=== PATIENT | female | born 1965 | race Caucasian/White ===

== ENCOUNTER → 2016-07-26 | Outpatient (CLI) | payer BC ==
[~2016-07-26] MED LIST: ACCU-CHEK D-TR1 CAR1 SQ; ASPIRIN PO; ATENOLOL PO; BACTRIM DS TABL1 TA1 PO; CYMBALTA20 M1 PO; ESTRACE PO; HUMALOG100 U/ML SUBQ; LORTAB 10/500 T1 TAB PO; NAPROXEN PO; NEURONTIN PO; NEURONTIN300 MG PO; PRAVACHOL20 MG PO; SINGULAIR PO; SYMLIN; VOLTAREN75 MG PO
[2016-07-26 11:39] LABS: BUN/CREATININE RATIO 27.14; CALCIUM SERUM 9.3 mg/dL (8.4-10.2); CREATININE SERUM 0.7 mg/dL (0.6-1.4); GLOM FILT RATE Estimated 101.7 mL/min (>60); POTASSIUM 4.6 mmol/L (3.5-5.1)
== END | disposition home or self-care (01) ==
LOC: CLAB 10:41
PROVIDERS: Internal Medicine Endocrinology, Diabetes & Metabolism
DX: E10.65 Type 1 diabetes mellitus with hyperglycemia (principal); E16.2 Hypoglycemia, unspecified; Z96.41 Presence of insulin pump (external) (internal)
CPT/HCPCS: 36415; 80048; 83036

== ENCOUNTER → 2016-10-19 | Outpatient (CLI) | payer BC ==
[2016-10-19 10:28] LABS: BUN/CREATININE RATIO 21.66; CALCIUM SERUM 9.4 mg/dL (8.4-10.2); CREATININE SERUM 0.6 mg/dL (0.6-1.4); POTASSIUM 4.7 mmol/L (3.5-5.1)
[2016-10-22 05:27] LABS: MICROALB UR (PNL) 1.2 mg/dL (***)
== END | disposition home or self-care (01) ==
LOC: CLAB 08:59
PROVIDERS: Internal Medicine Endocrinology, Diabetes & Metabolism
DX: E10.65 Type 1 diabetes mellitus with hyperglycemia (principal); E16.2 Hypoglycemia, unspecified
CPT/HCPCS: 36415; 80048; 80061; 82043; 82570; 83036

== ENCOUNTER 2016-11-11 12:47 | Emergency (ER) | payer BC ==
[~2016-11-11] VITALS: Ht 170.2 cm; Wt 86.2 kg
--- NOTE | ~2016-11-11 | CT4 ---
[facility] A Service of [facility] & [facility] RADIOLOGY TEXT RESULTS PATIENT: KADIE IRVIN LOCATION: SED : 69 UNIT #: [id number] AGE: [address]: Amarilis Griffin APRN SEX: F ORDER DR: [id number] [address] [address] [id number] MR#: [id number] Acc #: [id number] NAME: KADIE IRVIN : 1965 SEX: F STUDY DATE/TIME: 11/11/2016 14:03 UNIT: SED ROOM: STUDY DESCRIPTION: CT Abd and Pelv Wo Cont Attending Physician: Amarilis Griffin A.P.R.N. Ordering Physician: Amarilis Hendrix A.P.R.N. Primary Care Physician: Natalie Alfaro A.P.R.N. MEDICAL IMAGING REPORT This report is preliminary unless electronic signature is present. EXAM CT abdomen and pelvis without contrast 11/11/2016 1403 hours HISTORY 51-year-old woman with complaint of left flank pain for 4 days, possible renal stone. COMPARISON CT abdomen 11/14/2008 TECHNIQUE Helical noncontrasted images were obtained from the lung bases through the pubic symphysis without oral or intravenous contrast. Sagittal and coronal reconstructions were performed. Total exam DLP [address] exam was performed with one or more of the following radiation dose reduction techniques: automatic control, adjustment of mA and/or kV according to patient size, and iterative reconstruction. FINDINGS Images through the lung bases are clear. There is no effusion. Distal esophagus appears normal. Images through the abdomen without contrast demonstrate a normal appearance to the liver, spleen, pancreas and bile ducts. There are clips consistent with prior cholecystectomy. The adrenal glands are normal. The kidneys demonstrate no mass or stone. There are small extrarenal pelves bilaterally similar to prior study. There is no ureterectasis or ureteral calculus seen. Stomach is contracted and unopacified but appears normal. There is no small bowel distension or small bowel wall thickening. The terminal ileum is normal. There are clips consistent with prior appendectomy. STS. [facility] A Service of [facility] & [facility] RADIOLOGY TEXT RESULTS PATIENT: KADIE IRVIN LOCATION: SED : 69 UNIT #: [id number] AGE: [address]: Amarilis Griffin APRN SEX: F ORDER DR: The colon is nondistended. There is no colonic wall thickening. There a few diverticula at the junction of descending colon and sigmoid colon. 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 There is no adnexal mass or free fluid. Bone window images demonstrate no acute findings. IMPRESSION 1. No renal or ureteral calculi. 2. There are a few diverticula of the distal descending colon and proximal sigmoid colon without CT evidence of diverticulitis. 3. The stomach, small bowel are normal. 4. Postoperative change of cholecystectomy, appendectomy and hysterectomy. Dictated by... Sandra Gonzalez M.D. THIS IS AN ELECTRONICALLY VERIFIED REPORT Sandra Gonzalez M.D. at 11/12/2016 9:30 AM TRACIE/rosalee TD: 11/11/2016 19:21 JOB #: [id number] MEDICAL IMAGING REPORT Page 1 of 1
[2016-11-11 13:45] LABS: URINE SOURCE CLEAN CATCH
[2016-11-11 13:48] LABS: BASOPHIL% 0.6 % (0-2.5); EOSINOPHIL# 0.1 X10e3 (0-0.7); EOSINOPHIL% 1.3 % (0.0-7.0); HEMATOCRIT 36.7 % (35.0-45.0); HEMOGLOBIN 12.4 gm/dL (12.0-16.0); LYMPHOCYTE# 2.7 X10e3 (1.0-3.5); LYMPHOCYTE% 48.5 % (17.0-45.0); MEAN CELL VOLUME 85.9 FL (83-96); MEAN CORPUSCULAR HGB CONC 33.8 g/dL (30-36); MEAN PLATELET VOLUME 6.2 FL (6.5-11.5); MONOCYTE# 0.5 X10e3 (0-1.0); MONOCYTE% 9.5 % (3.0-12.0); NEUTROPHIL# 2.2 X10e3 (1.5-7.1); NEUTROPHIL% 40.1 % (40-75); PLATELET COUNT 385 X10e3 (140-420); RED BLOOD COUNT 4.27 X10e (3.90-5.30); RED CELL DISTRIBUTION WIDTH 12.8 % (11.0-15.5); WHITE BLOOD COUNT 5.5 X10e3 (4.0-10.5)
[2016-11-11 13:54] LABS: DIFF IND NO
[2016-11-11 13:57] LABS: URINE APPEARANCE CLEAR; URINE BILIRUBIN NEG (NEG); URINE BLOOD NEG (NEG); URINE COLOR YELLOW; URINE GLUCOSE NEG (NORM); URINE KETONE NEG (NEG); URINE LEUKOCYTE ESTERASE NEG (NEG); URINE NITRATE NEG (NEG); URINE PH 6.5 (5-8); URINE PROTEIN NEG (NEG); URINE SPECIFIC GRAVITY <=1.005 (1.003-1.035); URINE UROBILINOGEN 0.2 MG/DL (NORM)
[2016-11-11 14:02] LABS: MICRO INDICATED? NO
[2016-11-11 14:14] LABS: BUN/CREATININE RATIO 25.71; CALCIUM SERUM 9.3 mg/dL (8.4-10.2); CREATININE SERUM 0.7 mg/dL (0.6-1.4); GLOM FILT RATE Estimated 101.7 mL/min (>60)
== END 2016-11-11 15:33 | disposition home or self-care (01) ==
LOC: SED 12:47
PROVIDERS: Nurse Practitioner
DX: K57.90 Diverticulosis of intestine, part unspecified, without perforation or abscess without bleeding (principal); E11.9 Type 2 diabetes mellitus without complications; Z90.49 Acquired absence of other specified parts of digestive tract; Z90.710 Acquired absence of both cervix and uterus; Z79.899 Other long term (current) drug therapy
CPT/HCPCS: 36415; 74176; 80048; 81003; 85025; 96374; 96375; 99284; J1885; J2270; J2405